=== PATIENT | male | born 1970 | race Caucasian/White ===

== ENCOUNTER 2020-10-29 13:24 | Emergency (ER) | payer BC, MEDICAID, SELFPAY ==
[2020-10-29 13:27] VITALS: BP 120/70; PULSE 95; RESP 20; TEMP 36.1; O2SAT 99; BMI 38.0
--- NOTE | 2020-10-29 13:46 | EX.ED.DYSGE1 ---
HPI History of Present Illness Chief Complaint: General Illness Informant: patient Onset/Context/Timing Onset: Weeks (1) Context: Gradual Onset Timing: Continuous Quality: dry mouth, polyuria, polydipsia Current Severity: Moderate Maximum Severity: Moderate Worsened by: nothing Relieved by: nothing Associated Symptoms Associated Symptoms: a little more lightheaded than usual Narrative Narrative: Patient states he is a type II diabetic who is on Metformin and another little pill states his blood sugars usually well controlled and so he does not even have equipment to check it. He does take his medications and is compliant with them, however. He has been having polydipsia, polyuria, [place] along with a sweet taste in the back of his mouth that is abnormal for him for about the past week. He put a call into his computer art instructor yesterday but did not get a return call and decided to come for evaluation today. He states he had some of these symptoms when he had Covid in August, he also had a lot of the classic Covid symptoms that went away as did the symptoms. He had the first injection of the moderna vaccine 2 weeks and 2 days ago, for about 2 days he had fevers, headaches, myalgias, that went away and then he had vomiting and diarrhea for about a week. He was not sure if the vomiting and diarrhea was a side effect from the vaccine or if it was a viral syndrome that his family had just recently had, but he got over it and has had the above symptoms ever since, for about 1 week now. He states he also had a couple of mini strokes in the past and has heart disease, he takes aspirin for both of those and no other antiplatelet or anticoagulant medications. Since his strokes, he has felt lightheaded/dizzy off-and-on frequently, and that is a little more prominent now than usual but he has had no near syncopal episodes. [facility] Medical History (Updated 10/29/20 @ 15:[address] Shawn Leonard MD) CAD (coronary artery disease) Hypertension TIA (transient ischemic attack) Type 2 diabetes mellitus Home Medications aspirin [Aspir-81] 81 mg PO DAILY 10/29/20 [History Last Taken Unknown] atorvastatin 80 mg PO DAILY 10/29/20 [History Last Taken Unknown] ezetimibe 10 mg PO DAILY 10/29/20 [History Last Taken Unknown] hydrochlorothiazide 25 mg PO DAILY 10/29/20 [History Last Taken Unknown] losartan 100 mg PO DAILY 10/29/20 [History Last Taken Unknown] metformin 500 mg PO BID 10/29/20 [History Last Taken Unknown] metoprolol tartrate 100 mg PO DAILY 10/29/20 [History Last Taken Unknown] omeprazole 40 mg PO DAILY 10/29/20 [History Last Taken Unknown] pioglitazone [Actos] 30 mg PO DAILY 10/29/20 [History Last Taken Unknown] Allergy/AdvReac Type Severity Reaction Status Date / Time No Known Allergies Allergy Verified 10/29/20 13:27 Social History (Updated 10/29/20 @ 13:[address] Shawn Leonard MD) Smoking Status: Never smoker substance use type: does not use ROS ROS ED Constitutional Constitutional ED: Denies chills or fever(s) Eyes Eyes: Denies change in vision or diplopia ENT ENT ED: Reports dry mouth; Denies loss taste/smell, rhinorrhea or sore throat Cardiovascular Cardiovascular: Denies chest pain or palpitations Respiratory/Chest Respiratory/Chest: Denies cough or dyspnea Gastrointestinal Gastrointestinal: Denies abdominal pain, diarrhea, nausea or vomiting Genitourinary Genitourinary ED: Denies dysuria or hematuria Musculoskeletal Musculoskeletal: Denies back pain or neck pain Integumentary Denies abscess or rash Neurologic Neurologic: Denies headache(s), paresthesias or weakness Psychiatric Psychiatric: Denies anxiety or suicidal thoughts Endocrine Endocrinology: Reports fatigue, polydipsia and polyuria; Denies palpitations EXAM Physical Exam Const Vital Signs: 10/29/20 13:27 10/29/20 14:27 10/29/20 18:08 Temperature 97.0 F L Temperature Source Temporal Pulse Rate 95 71 Respiratory Rate 20 H 16 Respiratory Effort Normal Non-Labored Blood Pressure 120/70 141/77 H Blood Pressure Mean 86 98 Pulse Ox 99 98 Oxygen Delivery Method Room Air Room Air Positive well nourished, well developed and obese General Appearance ED: well developed and NAD Nutritional Appearance: obese HEENT Reports moist mucous membranes and oropharynx normal normocephalic and atraumatic Eyes PERRL and EOMs intact bilaterally Neck full ROM and supple Resp normal respiratory effort and clear to auscultation bilaterally Cardio regular rate, regular rhythm and no murmurs GI non-tender and non-distended Auscultation: normoactive bowel sounds Palpation: soft Back/Spine no CVA tenderness General Back: other FROM Extremity normal to inspection General Extremety ED: Negative for edema, pulses abnormal or tenderness General Extremity: Negative for edema or pulses abnormal Neuro oriented x3, CN's II-XII intact bilaterally and no sensory deficits noted Sensorium / Orientation: awake and alert Motor Exam: strength 5/5 throughout Psych mental status grossly normal and thought process normal Skin no rashes or lesions noted and no wounds MDM MDM MDM Narrative Medical decision making narrative: As below, patient has hyperglycemia over 550, along with associated pseudohyponatremia and he also has an elevated creatinine. There are no old values to compare. Urine shows no signs of infection just glycosuria. He was given a liter fluid and then after the blood sugar was noted, he was given insulin and monitored. After several hours, his blood sugar came down to the 300s and he is feeling better. I recommend increasing his Metformin over the weekend, limiting his sugar intake as apparently he has been drinking plenty of fluids with cola, containing plenty of sugar, and follow-up with his doctor for further evaluation for possible medication changes. Lab Data Attestation: I reviewed the patient's lab results. Labs: Laboratory Results - last 24 hr 10/29/20 10/29/20 10/29/20 14:10 14:15 14:15 WBC 9.4 RBC 4.63 Hgb 13.9 Hct 39.8 L MCV 86.0 MCH 30.0 MCHC 34.9 RDW Std Deviation 42.5 RDW Coeff of Mat 13.7 Plt Count 246 MPV 10.7 Immature Gran % (Auto) 0.500 Neut % (Auto) 68.8 Lymph % (Auto) 23.0 Stephenson % (Auto) 5.8 Eos % (Auto) 1.3 Baso % (Auto) 0.6 Absolute Neuts (auto) 6.5 Absolute Lymphs (auto) 2.17 Nucleated RBC % 0 Sodium 128 L Potassium 3.8 Chloride 93 L Carbon Dioxide 20.0 L Anion Gap 15 BUN 30 H Creatinine 1.71 H Estim Creat Clear Calc 52.18 Est GFR (MDRD) Af Amer 54 L Est GFR (MDRD) Non-Af 45 L BUN/Creatinine Ratio 17.5 Glucose 556 H* Calcium 9.2 Urine Color Straw Urine Clarity Clear Urine pH 5.0 Ur Specific [place] 1.015 Urine Protein 30 H Urine Glucose (UA) 1000 H Urine Ketones Negative Urine Occult Blood 10 H Urine Nitrite Negative Urine Bilirubin Negative Urine Urobilinogen Normal Ur Leukocyte Esterase Negative Urine RBC 0-5 SEEN Urine WBC 0-5 SEEN Ur Squamous Epith Cells 0-5 SEEN Urine Bacteria 0 SEEN Urine Mucus 0 SEEN POC Glucose 10/29/20 10/29/20 15:48 17:43 WBC RBC Hgb Hct MCV MCH MCHC RDW Std Deviation RDW Coeff of Mat Plt Count MPV Immature Gran % (Auto) Neut % (Auto) Lymph % (Auto) Stephenson % (Auto) Eos % (Auto) Baso % (Auto) Absolute Neuts (auto) Absolute Lymphs (auto) Nucleated RBC % Sodium Potassium Chloride Carbon Dioxide Anion Gap BUN Creatinine Estim Creat Clear Calc Est GFR (MDRD) Af Amer Est GFR (MDRD) Non-Af BUN/Creatinine Ratio Glucose Calcium Urine Color Urine Clarity Urine pH Ur Specific [place] Urine Protein Urine Glucose (UA) Urine Ketones Urine Occult Blood Urine Nitrite Urine Bilirubin Urine Urobilinogen Ur Leukocyte Esterase Urine RBC Urine WBC Ur Squamous Epith Cells Urine Bacteria Urine Mucus POC Glucose > 500 H* 491 H* Discharge Plan Triage Chief Complaint: General Illness ED Provider: Shawn Leonard Dx/Rx/DC Orders Clinical Impression: Hyperglycemia due to type 2 diabetes mellitus, Renal insufficiency Instructions: ED Diabetic Hyperglycemia Prescriptions: No Action metformin 500 mg Tablet 500 mg PO BID RF: 0 metoprolol tartrate 100 mg Tablet 100 mg PO DAILY RF: 0 aspirin [Aspir-81] 81 mg Tablet,Delayed Release (Dr/Ec) 81 mg PO DAILY RF: 0 pioglitazone [Actos] 30 mg Tablet 30 mg PO DAILY RF: 0 omeprazole 40 mg Capsule,Delayed Release(Dr/Ec) 40 mg PO DAILY RF: 0 atorvastatin 80 mg tablet 80 mg PO DAILY RF: 0 hydrochlorothiazide 25 mg tablet 25 mg PO DAILY RF: 0 losartan 100 mg tablet 100 mg PO DAILY RF: 0 ezetimibe 10 mg tablet 10 mg PO DAILY RF: 0 Primary Care Provider: Radha Willis Referrals: Doctor,Your [STAFF PHYSICIAN] - 3-5 Days (As soon as you are able, call for appointment) Activity Restrictions/Additional Instructions: Increase your Metformin to double your current dose, 1000 mg twice daily. Follow-up closely with your doctor. Disposition Disposition: Home, self care
[2020-10-29] MEDS: 0.9% Normal Saline 1,000 ML 1000 ML IV (14:20)
[2020-10-29 14:21] LABS: Bacteria 0 SEEN /hpf (None Seen); Mucous, Urine 0 SEEN /hpf (<or=2+)
[2020-10-29 14:22] LABS: Absolute Lymphocyte Count 2.17 X10^3/uL (0.83-4.51); Absolute Neutrophil Count 6.5 X10^3/uL (2.0-7.7); Basophil# 0.06 X10^3/uL; Basophil% 0.6 % (0-1); Eosinophil# 0.12 X10^3/uL; Eosinophils% 1.3 % (0-5); Hematocrit 39.8 % (40-54); Hemoglobin 13.9 g/dL (13.0-16.5); Lymphocyte # 2.17 X10^3/ul (0.83-4.51); Mean Corp Hgb Conc 34.9 g/dL (32-36); Mean Platelet Vol. 10.7 fl (6.2-12.0); Monocyte# 0.55 X10^3/uL; Monocyte% 5.8 % (0-10); NRBC Flagged by Analyzer 0 % (0-5); Neutrophil # 6.48 X10^3/uL (2.7-7.7); Neutrophil % 68.8 % (47-70); Platelet Count 246 K/mm3 (150-450); RBC Distribution Width CV 13.7 % (11.6-14.6); RBC Distribution Width SD 42.5 fl (35.1-43.9); Red Blood Count 4.63 M/mm3 (4.6-6.2); White Blood Count 9.4 K/mm3 (4.4-11.0)
[2020-10-29 14:23] LABS: Color, Urine Straw (Yellow); Glucose, Dipstick 1000 mg/dl (Normal); Ketone-Dipstick Negative (Negative); Leukocyte Esterase-Dipstick Negative /ul (Negative); Nitrite-Dipstick Negative (Negative); Occult Blood-Urine 10 /ul (Negative); Protein-Dipstick 30 mg/dl (Negative); Specific Gravity, Urine 1.015 (1.002-1.030); Urine Bilirubin Dipstick Negative (Negative); Urine Clarity Clear (Clear); Urine Urobilinogen Normal (Normal)
[2020-10-29 14:32] LABS: Squamous Epithelial Cells - UA 0-5 SEEN /hpf (0-5)
[2020-10-29 14:33] LABS: Red Blood Cells-Urine 0-5 SEEN /hpf (0-5); White Blood Cells 0-5 SEEN /hpf (0-5)
[2020-10-29 15:16] LABS: Anion Gap 15 (5-15); BUN 30 mg/dL (7-18); BUN/Creat Ratio 17.5 RATIO (10-20); Calcium,Total 9.2 mg/dL (8.5-10.1); Chloride 93 mmol/L (98-107); Creatinine, Serum 1.71 mg/dL (0.70-1.30); EST Glomerular Filtration Rate 45 mL/min (>60); Est Glom Filt Rate - Afr Amer 54 mL/min (>60); Estimated Creatinine Clearance 52.18 ml/min; Glucose 556 mg/dL (74-106); Potassium 3.8 mmol/L (3.5-5.1); Sodium Level 128 mmol/L (136-145)
[2020-10-29] MEDS: Insulin Lispro 100 UNIT/ML INSULN.PEN 16 UNIT SC (15:49)
[2020-10-29 16:11] LABS: Bedside Glucose > 500 mg/dL (70-110)
[2020-10-29 17:45] LABS: Bedside Glucose 491 mg/dL (70-110)
[2020-10-29] MEDS: 0.9% Normal Saline 1,000 ML 999 ML IV (18:06)
[2020-10-29 18:08] VITALS: BP 141/77; PULSE 71; RESP 16; O2SAT 98
[2020-10-29 19:21] LABS: Bedside Glucose 372 mg/dL (70-110)
== END 2020-10-29 19:37 | disposition home or self-care (01) ==
PROVIDERS: Emergency Provider Emergency Medicine; PCP Pediatrics
DX: E11.65 Type 2 diabetes mellitus with hyperglycemia (principal); N28.9 Disorder of kidney and ureter, unspecified; I25.10 Atherosclerotic heart disease of native coronary artery without angina pectoris; I10 Essential (primary) hypertension; E66.9 Obesity, unspecified; Z79.84 Long term (current) use of oral hypoglycemic drugs; Z79.82 Long term (current) use of aspirin; Z79.899 Other long term (current) drug therapy; Z86.16 Personal history of COVID-19; Z86.73 Personal history of transient ischemic attack (TIA), and cerebral infarction without residual deficits
CPT/HCPCS: 80048; 81001; 82962; 85025; 96360; 96361; 99282; J7030; A4216

== ENCOUNTER 2022-04-09 13:44 | Emergency (ER) | payer BC, MEDICAID, SELFPAY ==
[2022-04-09 13:45] VITALS: BP 130/86; PULSE 96; RESP 18; TEMP 37.2; O2SAT 98; BMI 38.7
--- NOTE | 2022-04-09 14:20 | RAD_ITS ---
STUDY: X-RAY - LEFT KNEE REASON FOR EXAM: Male, 51 years old. Injury TECHNIQUE: 4 view(s) of the knee. COMPARISON: None. FINDINGS: Normal visualized distal femur. Normal visualized proximal tibia and fibula. Normal proximal tibiofibular articulation. Normal medial femorotibial compartment. Normal lateral femorotibial compartment. Normal patellofemoral articulation. Small joint effusion. RAD/Knee 4 or More Views IMPRESSION: Small joint effusion. Electronically Signed: Rishi Stanley MD at 14:37 EDT ,
--- NOTE | 2022-04-09 16:21 | EDS_ITS ---
HPI History of Present Illness HPI Narrative: Left knee injury about 2 weeks ago. Chief Complaint: Lower Extremity Injury Informant: patient Occured/Mechanism Mechanism/Context: Yes injury and Yes blunt trauma Onset/Context/Timing Onset: Weeks Context: Sudden Onset Timing: Continuous Quality of Pain: Dull and Aching Current Severity: Mild Maximum Severity: Mild Associated Symptoms Associated Symptoms: Negative for Parasthesia, Weakness or Loss of Funtion Narrative Narrative: 51-year-old male history of CAD, hypertension, strokes and diabetes. No prior knee history of knee surgery. 2 weeks ago was getting out of his truck missed his running board and when he landed on the ground a straight leg his landing and injured his left knee. Since progressively gotten worse with increased walking. Denies any fever or redness. Prior similar symptoms: No Recent Illness/Hospitalization: No PFSH PFS Medical History CAD (coronary artery disease) Hypertension TIA (transient ischemic attack) Type 2 diabetes mellitus Home Medications aspirin 81 mg tablet,delayed release 81 mg PO DAILY 10/29/20 [History Last Taken Unknown] atorvastatin 80 mg tablet 80 mg PO DAILY 10/29/20 [History Last Taken Unknown] ezetimibe 10 mg tablet 10 mg PO DAILY 10/29/20 [History Last Taken Unknown] hydrochlorothiazide 25 mg tablet 25 mg PO DAILY 10/29/20 [History Last Taken Unknown] losartan 100 mg tablet 100 mg PO DAILY 10/29/20 [History Last Taken Unknown] metformin 500 mg tablet 500 mg PO BID 10/29/20 [History Last Taken Unknown] metoprolol tartrate 100 mg tablet 100 mg PO DAILY 10/29/20 [History Last Taken Unknown] omeprazole 40 mg capsule,delayed release 40 mg PO DAILY 10/29/20 [History Last Taken Unknown] pioglitazone 30 mg tablet (Actos) 30 mg PO DAILY 10/29/20 [History Last Taken Unknown] hydrocodone-acetaminophen 5-325mg 5mg-325mg 1 tab PO Q4H PRN pain 4 days #14 tabs 04/09/22 [Rx Last Taken Unknown] Allergy/AdvReac Type Severity Reaction Status Date / Time No Known Allergies Allergy Verified 04/09/22 13:45 Social History Smoking Status: Never smoker substance use type: does not use ROS ROS ED ROS Narrative Denies recent illness. Review of Systems ROS Unobtainable: Denies due to encephalopathy Constitutional Constitutional ED: Denies chills or fever(s) Eyes Eyes: Denies blurry vision ENT ENT ED: Denies ear pain Cardiovascular Cardiovascular: Denies chest pain Respiratory/Chest Respiratory/Chest: Denies cough or dyspnea Gastrointestinal Gastrointestinal: Denies abdominal pain Genitourinary Genitourinary ED: Denies dysuria or hematuria Musculoskeletal Musculoskeletal: Denies arthralgias Integumentary Denies abscess Neurologic Neurologic: Denies headache(s) Psychiatric Psychiatric: Denies anxiety Endocrine Endocrinology: Denies polydipsia Hematologic/Lymphatic Hematologic/Lymphatic: Denies easy bleeding Allergic/Immunologic Allergic/Immunologic ED: Denies mouth swelling or tongue swelling EXAM Physical Exam Narrative Exam Narrative: 48-year-old male no acute distress vital signs stable afebrile. HEENT, neck, heart, lung, abdominal exam unremarkable. Left knee has full flexion-extension. ACL and PCL are intact. As are the MCL and LCL. No significant swelling. No redness. No signs of septic joint. Normal flexion-extension. Dorsi plantarflexion intact in the foot and ankle. Calf nontender nonswollen. He can lift the leg off the bed proving extensor mechanism is intact. Const Vital Signs: 04/09/22 13:45 Temperature 98.9 F Temperature Source Temporal Pulse Rate 96 Respiratory Rate 18 Blood Pressure 130/86 H Blood Pressure Mean 100 Pulse Ox 98 Oxygen Delivery Method Room Air Positive well nourished and well developed; Negative for cachectic, contractures or unkempt General Appearance ED: well developed and NAD; Negative for unkempt, cachectic or contractures Nutritional Appearance: Negative for cachectic HEENT Reports moist mucous membranes normocephalic and atraumatic; Negative for trauma or tenderness Eyes PERRL General Eye ED: Negative for other Neck full ROM and supple Thyroid: Negative for tender Lymph Lymphatic: Negative for other Chest Wall inspection of chest normal and palpation of chest normal Chest: Negative for other Resp normal respiratory effort, no retractions and clear to auscultation bilaterally Effort and Inspection: Negative for pain with movement Auscultation: Negative for rales or rhonchi Percussion: Negative for other Cardio regular rate, regular rhythm, S1 normal heart sound, S2 normal heart sound and no murmurs Rate: Negative for bradycardia Rhythm: Negative for abnormal rhythm Bruits: Negative for other GI non-tender, non-distended and no masses Inspection: Negative for abdominal distention Auscultation: normoactive bowel sounds Palpation: soft; Negative for tender or guarding Bladder / Kidney Exam: No other Back/Spine no CVA tenderness General Back: Negative for CVA tenderness Cervical Spine: Negative for cervical spine tenderness Thoracic Spine / Upper Back: Negative for thoracic spinal tenderness Lumbar Spine / Lower Back: Negative for lumbar spinal tenderness Extremity normal to inspection and full ROM General Extremety ED: Negative for cyanosis or edema General Extremity: Negative for cyanosis or edema Neuro oriented x3, CN's II-XII intact bilaterally and moves all extremities Sensorium / Orientation: alert, oriented to person, oriented to place and oriented to time; Negative for orientation impaired, confused, lethargic or stuporous Motor Exam: strength 5/5 throughout Psych mental status grossly normal Appearance: Negative for unkempt Speech: No other Mood & Affect: Negative for anxious Skin no wounds Lesions: no lesions Rashes: no rashes MDM MDM MDM Narrative Medical decision making narrative: Patient with a traumatic left knee effusion. Could be from arthritis, knee sprain or meniscal tear. His ligaments appear to be intact. X-ray just showed a small effusion. Motrin for pain and ice. Limited [place] for pain. Follow-up with a local orthopedic physician if not improving for further evaluation and possible MRI if not improving. Radiography Diagnostic Testing: Clinical Impression(s) from Imaging Studies Knee X-Ray 04/09/22 14:20 IMPRESSION: Small joint effusion. Electronically Signed: Rishi Stanley MD at 14:37 EDT Reading Location ID and State: [facility] / [place] , Service support , Left knee x-ray 4 views interpreted by myself and radiologist shows small joint effusion otherwise no acute bony abnormality. No fracture or dislocation. Discharge Plan Triage Chief Complaint: Lower Extremity Injury ED Provider: Richard Vera Dx/Rx/DC Orders Clinical Impression: Effusion of left knee, Arthritis, Knee sprain Instructions: ED Knee Effusion Prescriptions: New hydrocodone-acetaminophen 5-325 mg tablet 1 tab PO Q4H PRN (Reason: pain) 4 Days Qty: 14 0RF No Action metformin 500 mg Tablet 500 mg PO BID metoprolol tartrate 100 mg Tablet 100 mg PO DAILY aspirin [Aspir-81] 81 mg Tablet,Delayed Release (Dr/Ec) 81 mg PO DAILY pioglitazone [Actos] 30 mg Tablet 30 mg PO DAILY omeprazole 40 mg Capsule,Delayed Release(Dr/Ec) 40 mg PO DAILY atorvastatin 80 mg tablet 80 mg PO DAILY Label Comments: take 1 tablet by mouth at bedtime hydrochlorothiazide 25 mg tablet 25 mg PO DAILY Label Comments: take 1 tablet by mouth daily losartan 100 mg tablet 100 mg PO DAILY Label Comments: take 1 tablet by mouth once daily ezetimibe 10 mg tablet 10 mg PO DAILY Label Comments: TAKE 1 TABLET BY MOUTH ONCE DAILY Primary Care Provider: Radha Willis Referrals: Radha Willis MD [Primary Care Provider] - As Needed Onur Donis DO [Med Staff - Active Staff] - 1-2 Weeks Activity Restrictions/Additional Instructions: The pain is either from aggravation of the knee arthritis, knee sprain or po ssibly a meniscal tear. The x-rays were unremarkable other than a small amount of fluid: Effusion. Ice your knee 3-4 times a day for least 30 minutes at a time. Motrin for pain and swelling. Tylenol for pain. Call and follow-up with a local orthopedic physician. If not improving they can either do a knee injection or do an MRI to evaluate for a possible meniscal tear. Limited [place] for more significant pain. If using the [place] do not also use Tylenol because there is Tylenol in it. Disposition Disposition: Home, Self Care
[2022-04-09 16:25] VITALS: BP 153/88; PULSE 88; RESP 18; O2SAT 100
[2022-04-09 16:32] VITALS: BP 156/88; PULSE 76; RESP 18; O2SAT 98
== END 2022-04-09 17:03 | disposition home or self-care (01) ==
PROVIDERS: Emergency Provider Emergency Medicine; PCP Pediatrics; Visit Provider Emergency Medicine
DX: S83.92XA Sprain of unspecified site of left knee, initial encounter (principal); E11.9 Type 2 diabetes mellitus without complications; X58.XXXA Exposure to other specified factors, initial encounter; Y92.812 Truck as the place of occurrence of the external cause; M17.12 Unilateral primary osteoarthritis, left knee; I25.10 Atherosclerotic heart disease of native coronary artery without angina pectoris; I10 Essential (primary) hypertension; Z79.82 Long term (current) use of aspirin; Z79.899 Other long term (current) drug therapy; Z79.84 Long term (current) use of oral hypoglycemic drugs; Z86.73 Personal history of transient ischemic attack (TIA), and cerebral infarction without residual deficits
CPT/HCPCS: 73564; 99282

== ENCOUNTER → 2022-05-23 | Outpatient (CLI) | payer BC, MEDICAID, SELFPAY ==
--- NOTE | 2022-05-23 10:09 | MRI_ITS ---
STUDY: MRI LEFT KNEE REASON FOR EXAM: Male, 51 years old. Left knee contusion. Pain. TECHNIQUE: Standardized fat and water weighted pulse sequences were obtained in all 3 orthogonal planes. COMPARISON: Left knee x-rays dated April 09, 2022. FINDINGS: Normal medial meniscus. Mild thinning of the articular cartilage of the medial femorotibial compartment (coronal series 5 images 11-18). Normal medial femoral condyle and tibial plateau. Normal medial collateral ligamentous complex (MCL). Normal distal semimembranosus, gracilis and semitendinosus tendons. Normal lateral meniscus. Mild thinning of the articular cartilage of the lateral femorotibial compartment (coronal series 5 images 12-19). Normal lateral femoral condyle and tibial plateau. Normal proximal tibiofibular articulation. Normal lateral collateral (fibular) ligament. Normal popliteus tendon. Normal biceps femoris tendon. Normal anterior cruciate ligament (ACL). Normal posterior cruciate ligament (PCL). Lateral tilt and subluxation of the patella (axial series 3 images 8-14). Normal hyaline cartilage of the patellofemoral compartment. Normal medial and lateral patellar retinaculum. Normal quadriceps tendon. Normal patellar tendon. Normal Hoffa''s fat pad. Small joint effusion (axial series 3 image 9). The soft tissues are unremarkable. The otherwise visualized osseous structures are unremarkable. MRI/Lower Ext Joint Only (Routine) IMPRESSION: Mild thinning of the articular cartilage of the medial and lateral femorotibial compartments. Slight lateral tilt and subluxation of the patella. Small joint effusion. No other abnormality present. Electronically Signed: Michael Garvin, at 9:17 EST ,
== END | disposition home or self-care (01) ==
LOC: MRI 09:55
PROVIDERS: PCP Pediatrics; Visit Provider Physician Assistant Surgical
DX: S80.02XA Contusion of left knee, initial encounter (principal)
CPT/HCPCS: 73721